=== PATIENT | female | born 1980 ===

== ENCOUNTER 2016-11-18 15:32 | Emergency (ER) | payer SELFPAY ==
[2016-11-18 15:40] VITALS: RESP 16
[2016-11-18 16:09] LABS: RBC URINE < 1 /hpf (0-3); URINE BILIRUBIN NEGATIVE (NEGATIVE); URINE BLOOD NEGATIVE (NEGATIVE); URINE COLOR Colorless (YELLOW); URINE GLUCOSE (UA) NORMAL (Normal); URINE KETONE NEGATIVE (NEGATIVE); URINE LEUKOCYTE ESTERASE NEG Leu/uL (Negative); URINE PROTEIN NEGATIVE (NEGATIVE); URINE UROBILINOGEN NORMAL mg/dL (0.2-1.0); WBC URINE < 1 /hpf (0-5)
--- NOTE | 2016-11-18 17:29 | C.PDOC ---
History Of Present Illness A 35 year old female, whose past medical history includes hypothyroidism, presents to the emergency department for a cramping pain in her left lower quadrant, which began 5 days ago. The patient originally was seen in fast track , but was moved to emergency department. She denies any constipation, fever, chest pain, or any other complaints at this time. Time Seen by Provider: 11/18/16 15:44 Chief Complaint (Nursing): Abdominal Pain History Per: Patient History/Exam Limitations: no limitations Onset/Duration Of Symptoms: Days (x 5 days ) Current Symptoms Are (Timing): Still Present Associated Symptoms: denies: Fever Past Medical History Reviewed: Historical Data, Nursing Documentation, Vital Signs Vital Signs: Last Vital Signs Temp 98 F 11/18/16 17:34 Pulse 72 11/18/16 17:34 Resp 16 11/18/16 17:34 BP 104/64 11/18/16 17:34 Pulse Ox 97 11/19/16 00:25 - Medical History PMH: Hypothyroidism Surgical History: Appendectomy - [facility] Procedures EPISIOTOMY (12/03/12) MONITORING NOS (12/03/12) MANUAL ASSIST DELIV NEC (12/03/12) Family History: States: No Known Family Hx - Social History Hx Alcohol Use: No Hx Substance Use: No - Immunization History Hx Tetanus Toxoid Vaccination: Yes Hx Influenza Vaccination: No Hx Pneumococcal Vaccination: No Review Of Systems Except As Marked, All Systems Reviewed And Found Negative. Review Of Systems: ROS cannot be obtained secondary to pt's inabilty to answer questions. Constitutional: Negative for: Fever Cardiovascular: Negative for: Chest Pain Gastrointestinal: Positive for: Abdominal Pain. Negative for: Constipation Physical Exam - Physical Exam Appears: Well, No Acute Distress Skin: Normal Color, Warm, Dry Head: Atraumatic, Normacephalic Eye(s): bilateral: Normal Inspection, PERRL, EOMI Nose: Normal Throat: Normal Neck: Normal Cardiovascular: Rhythm Regular Respiratory: Normal Breath Sounds Gastrointestinal/Abdominal: Normal Exam, Other (Dull to percussion throughout abdomen ) Back: Normal Inspection Extremity: Normal ROM ED Course And Treatment - Laboratory Results Lab Interpretation: Normal (UA neg.) Urine POC: Negative O2 Sat by Pulse Oximetry: 97 Medical Decision Making Medical Decision Making: Plan: -- Culture Urine -- Urine Test Progress Notes: consider constipation for lower abd colicky pain, chronic, normal UA/preg and dull to percussion throughout pt unable to stay for eval at this time due to time constraints, prefers to return tomorrow after empiric laxative trial. LOW susp of AP/Diverticulitis Disposition Doctor Will See Patient In The: Office Counseled Patient/Family Regarding: Studies Performed, Diagnosis - Disposition Referrals: [facility] [Outside] [facility]Outside[facility] Disposition: HOME/ ROUTINE Disposition Time: 17:28 Condition: GOOD Additional Instructions: yamileth un purgante ahora, y regressa la ofelia de Emergencias manana para re- evaluacion' constance quiere Reccomiendo que yamileth caden botella de Citrato de Magnesio, ahora, y la botella completo. Instructions: Constipation (ED), Abdominal Pain (ED) Forms: [employer] (Kyrgyz) Print Language: ISRAELI - Clinical Impression Clinical Impression: Colicky LLQ abdominal pain - Scribe Statement The provider has reviewed the documentation as recorded by the Scribe Kristan Dumont All medical record entries made by the Scribe were at my direction and personally dictated by me. I have reviewed the chart and agree that the record accurately reflects my personal performance of the history, physical exam, medical decision making, and the department course for this patient. I have also personally directed, reviewed, and agree with the discharge instructions and disposition.
[2016-11-18 17:35] VITALS: BP 104/64; PULSE 72; TEMP 98
[2016-11-18 18:40] VITALS: O2SAT 97
== END 2016-11-18 17:36 | disposition home or self-care (01) ==
LOC: C.ER 15:32
DX: R10.32 Left lower quadrant pain (principal); R10.84 Generalized abdominal pain